=== PATIENT | male | born 1935 | race Caucasian/White ===

== ENCOUNTER 2017-02-16 16:01 | Emergency (ER) | payer MEDICARE ==
[~2017-02-16] VITALS: Ht 177.8 cm; Wt 118.2 kg
[~2017-02-16 16:01] MED LIST: ACCUKIT10 XX; ACURKIT XX; ADVO1MIS3 XX; ALCOPAD11 XX; AMLO10TA2 PO; AMLO5TAB2 PO; ASPI325T24 PO; CARV12.5 PO; CARV6.25 PO; CRES10TA32 PO; FURO20TA2 PO; FURO40TA2 PO; GABA-279 PO; INSUDET SC; INSUH10VL SC; K-TA1TAB PO; LASI80TA PO; LOSA100T36 PO; LOSA100T8 PO; NITR4TASL SL; NORV5TAB PO; ONETKIT IM; ONETKIT XX; TOUJ1.2I SC; TRUL10IN SC; VITACAP9 PO
[2017-02-16 16:19] VITALS: BP 184/83
[2017-02-16 16:54] LABS: BASO % 0.3 % (0.0-1.0); EOS # 0.2 K/mm3 (0.0-0.50); EOS % 2.3 % (0.0-3.0); LARGE UNSTAINED CELL # 0.1 K/mm3 (0.0-0.4); LARGE UNSTAINED CELL % 1.2 % (0.0-4.0); LYMPH # 1.5 K/mm3 (1.5-4.5); LYMPH % 15.1 % (24.0-44.0); MEAN CORPUSCULAR HEMOGLOBIN 31.2 pg (27.0-33.0); MEAN CORPUSCULAR HGB CONC 33.8 g/dl (32.0-36.5); MEAN CORPUSCULAR VOLUME 92.2 fl (80.0-96.0); MONO # 0.4 K/mm3 (0.0-0.8); MONO % 3.8 % (0.0-5.0); NEUTROPHILS # 7.1 K/mm3 (1.8-7.7); NEUTROPHILS % 77.3 % (36.0-66.0); PLATELET COUNT, AUTOMATED 168 k/mm3 (150-450); RED CELL DISTRIBUTION WIDTH 14.1 % (11.5-14.5); WHITE BLOOD COUNT 9.1 K/mm3 (4.0-10.0)
[2017-02-16 17:23] LABS: CALCIUM LEVEL 8.2 MG/DL (8.8-10.2); CREATININE FOR GFR 1.51 MG/DL (0.70-1.30); GLOMERULAR FILTRATION RATE 47.2 (>35)
== END 2017-02-16 19:27 | disposition home or self-care (01) ==
LOC: M ED 16:01 → EDBD 16:01 → EDSEX 16:01 → M ED 19:27
DX: N18.3 Chronic kidney disease, stage 3 (moderate) (principal); M48.06 Spinal stenosis, lumbar region; W01.0XXA Fall on same level from slipping, tripping and stumbling without subsequent striking against object, initial encounter; E11.22 Type 2 diabetes mellitus with diabetic chronic kidney disease; I12.9 Hypertensive chronic kidney disease with stage 1 through stage 4 chronic kidney disease, or unspecified chronic kidney disease; E66.9 Obesity, unspecified; Z95.2 Presence of prosthetic heart valve; Z79.4 Long term (current) use of insulin; Z79.82 Long term (current) use of aspirin; Z79.899 Other long term (current) drug therapy; Z88.8 Allergy status to other drugs, medicaments and biological substances

== ENCOUNTER 2017-02-27 21:03 | Inpatient (IN) | payer MEDICARE ==
[~2017-02-27] VITALS: Ht 177.8 cm; Wt 117.0 kg
[2017-02-27] MEDS ORDERED: NEUR100C PO ×2 (21:35)
[2017-02-27] MEDS ORDERED: INSUDET SC (21:35)
[2017-02-27] MEDS ORDERED: INSUH10VL SC (21:35)
[2017-02-27] MEDS ORDERED: NS 500 ML IV ONE (22:15)
[2017-02-27 22:24] LABS: VENOUS BASE EXCESS 1.5 (-2.0-2.0); VENOUS O2 SATURATION 72.2 % (60.0-80.0); VENOUS PARTIAL PRESSURE CO2 53.6 mmHg (38.0-50.0); VENOUS PARTIAL PRESSURE O2 39.7 mmHg (30.0-50.0); VENOUS STANDARD HCO3 25.2 MEQ/L; VENOUS TOTAL CO2 29.8 MEQ/L (24.0-28.0)
[2017-02-27 22:31] LABS: BASO # 0.1 K/mm3 (0.0-0.2); BASO % 1.1 % (0.0-1.0); EOS # 0.1 K/mm3 (0.0-0.50); EOS % 1.5 % (0.0-3.0); LARGE UNSTAINED CELL # 0.1 K/mm3 (0.0-0.4); LARGE UNSTAINED CELL % 1.5 % (0.0-4.0); LYMPH # 1.9 K/mm3 (1.5-4.5); LYMPH % 20.5 % (24.0-44.0); MEAN CORPUSCULAR HEMOGLOBIN 31.1 pg (27.0-33.0); MEAN CORPUSCULAR HGB CONC 34.2 g/dl (32.0-36.5); MEAN CORPUSCULAR VOLUME 90.9 fl (80.0-96.0); MONO # 0.4 K/mm3 (0.0-0.8); MONO % 4.7 % (0.0-5.0); NEUTROPHILS # 6.4 K/mm3 (1.8-7.7); NEUTROPHILS % 70.7 % (36.0-66.0); PLATELET COUNT, AUTOMATED 210 k/mm3 (150-450); RED CELL DISTRIBUTION WIDTH 13.8 % (11.5-14.5)
[2017-02-27 22:37] LABS: ALBUMIN 2.7 GM/DL (3.2-5.2); ALBUMIN/GLOBULIN RATIO 0.75 (1.00-1.93); BILIRUBIN,DIRECT 0.1 MG/DL (0.0-0.2); BILIRUBIN,TOTAL 0.4 MG/DL (0.2-1.0); CALCIUM LEVEL 8.4 MG/DL (8.8-10.2); CREATININE FOR GFR 2.24 MG/DL (0.70-1.30); TOTAL PROTEIN 6.3 GM/DL (6.4-8.2)
[2017-02-28] VITALS (8 sets, daily range): BP systolic 126–192; BP diastolic 62–81
[2017-02-28] MEDS ORDERED: ONDANSETRON 4MG/2ML VIAL (J2405) IV PRN (01:00)
[2017-02-28] MEDS ORDERED: ACETAMINOPHEN TAB 650MG DOSE (2X325MG) PO PRN (01:00)
[2017-02-28] MEDS ORDERED: DEXTROSE 50% 50 ML SYRINGE IV PRN (01:15)
[2017-02-28] MEDS ORDERED: GLUCAGON FOR INJ 1 MG VIAL (J1610) SC PRN (01:15)
[2017-02-28] MEDS ORDERED: GLUCOSE 4 GM CHEW TABLET PO PRN (01:15)
[2017-02-28] MEDS ORDERED: TRUL0.5I SC (01:58)
[2017-02-28] MEDS ORDERED: FURO40TA2 PO (01:58)
[2017-02-28] MEDS ORDERED: LOSA100T36 PO (01:58)
[2017-02-28] MEDS ORDERED: CARV25TA PO (01:58)
[2017-02-28] MEDS ORDERED: LACT10SO29 PO (01:58)
--- NOTE | 2017-02-28 02:10 | REPUSA ---
CLINICAL HISTORY: Edema. COMMENTS: Real time sonography with duplex doppler of the extremities bilaterally was performed with attention to the major deep venous structures. Evaluation reveals the common femoral, superficial femoral and popliteal veins bilaterally to be comp letely compressible without intraluminal thrombus. There is normal spontaneous phasic flow and augmen tation in all deep veins. The greater saphenous/common femoral vein junctions are patent bilaterally. IMPRESSION: No evidence of DVT in the lower extremities bilaterally. Thank you for your kind referral of this patient.
[2017-02-28] MEDS: PERCOCET 5MG/325MG TAB PO PRN (02:22)
--- NOTE | 2017-02-28 03:00 | HPE ---
DATE OF ADMISSION: 02/28/2017 PRIMARY CARE PROVIDER: Dr. Cifuentes covered by Anastacio Morrison. CHIEF COMPLAINT: Lightheaded, almost passing out, low energy level. HISTORY OF PRESENT ILLNESS: This is an 81-year-old male patient with underlying medical history of poorly controlled diabetes, dyslipidemia, hypertension, coronary arterial disease with coronary artery bypass graft (CABG), chronic kidney disease (CKD) stage IV, congestive heart failure (CHF), sees Dr. Ho from nephrology, poor compliance, currently patient is not really following up appropriately. Presented earlier today during dinnertime, patient felt lightheaded with no strength, with almost passing out. Emergency medical services (EMS) was called, found the patient to be hypoglycemic down to the 70s and also blood pressure in the 80s, which improved with intravenous (IV) fluids. Earlier today around 3 p.m., patient was informed that his blood glucose is 540. Subsequently, received 10 of NovoLog with fingerstick progressively lower numbers. Patient has history of erratic glucose, sometimes with hypoglycemia. As per family, patient is not really compliant with his medication. Patient reported mild cough, not much out of ordinary. Denies any chest pain, pressure, discomfort. Denies palpitations, urinary complaint, abdominal pain, diarrhea, constipation, vision change, hearing change, headaches. Feels comfortable in the emergency department (ED). Does report intermittent left foot cramping that has been chronic with bilateral lower extremity edema and blisters with venous stasis skin changes and also obesity. ALLERGIES: To RAMIPRIL and SPIRONOLACTONE. PAST MEDICAL HISTORY: 1. Diabetes. 2. Obesity. 3. Dyslipidemia. 4. Coronary arterial disease. 5. Hypertension. 6. CKD stage IV. 7. Questionable CHF. PAST SURGICAL HISTORY: 1. CABG 10 years ago. 2. Appendectomy. 3. Left knee surgery secondary to fall. 4. Tonsillectomy. SOCIAL HISTORY: Patient quit smoking at age 53. Started smoking since he was 15 years old, one pack per day. Drinking one can of beer one time a month. Denies any other illicit drug use. Patient lives alone. Family have serious concern of the patient's ability to care for him and also take his medication. FAMILY HISTORY: Both parents with diabetes type 2. REVIEW OF SYSTEMS: Reported lightheadedness and fatigue earlier today, poorly controlled blood glucose, intermittent left leg cramp and also cough. All other review of systems is negative. PHYSICAL EXAMINATION: VITAL SIGNS: Patient with blood pressure in 80s on admission, temperature 97, pulse 62, respirations 20, blood pressure 118/56, pulse oximetry 97% on room air. GENERAL: Patient morbidly obese, alert and oriented times three in no acute distress, poor historian. HEENT: Normocephalic, atraumatic. PULMONARY: Diminished breath sounds bilaterally. CARDIAC: Regular S1, S2. Distant heart sounds. ABDOMEN: Soft, nontender. Positive bowel sounds. Obese. EXTREMITIES: 2+ bilateral lower extremity edema up to the thigh with blisters and venous stasis skin changes. Does not appear to be erythematous. EKG sinus rhythm, first-degree heart block with T-wave inversion V3-V6. No significant change compared to previous. LABORATORY: WBC 9, hemoglobin and hematocrit 11.9/34.8, platelets 210. Chemistry: Sodium 139, potassium 4, chloride 104, bicarbonate 27, BUN 30, creatinine 2.24, lactic acid 3.3. Troponin 0.99 and repeat 0.88. HOME MEDICATIONS: - Norvasc 5 mg by mouth daily - aspirin 325 mg by mouth daily - Coreg 25 mg by mouth twice a day - Lasix 80 mg by mouth daily - Neurontin 100 mg by mouth in the morning and 200 mg by mouth nightly - NovoLog insulin 40 units premeal - Levemir 70 units subcutaneously daily - lactulose - losartan 100 mg by mouth daily - nitroglycerin 0.4 mg sublingually as needed - Crestor 10 mg by mouth daily - Trulicity 1.5 mg subcutaneously as directed ASSESSMENT AND PLAN: This is an 81-year-old male patient with underlying medical history of morbid obesity, hypertension, dyslipidemia, coronary arterial disease with coronary artery bypass graft (CABG), chronic kidney disease (CKD) stage IV, diabetes, congestive heart failure (CHF), presented with near syncopal episode with hypoglycemia and hypotension. 1. Near syncope episode with hypoglycemia and hypotension. Followup orthostatics. Intravenous (IV) fluids have been given in the emergency room. Holding blood pressure medications. Strict intake and output (I and O). Follow fingersticks every 2 hours for the next 24 hours. Insulin dose has been adjusted. Echocardiogram. Currently back to baseline. Physical therapy. Patient experienced no loss of consciousness and no injuries. Followup cardiac enzymes. Telemetry. 2. Lactic acidosis. Possibly secondary to hypoglycemia versus hypotension. IV fluids have been given. Holding blood pressure medications. Repeat lactic acid. 3. Troponin elevation in the setting of CKD. Continue to monitor. Telemetry. Patient has no chest pain. 4. Dyslipidemia. Continue statin. 5. Diabetes. Patient with hypoglycemia. Basal bolus insulin. Levemir has been decreased to 50 and mealtime protocol. Followup fingersticks every 2 hours for the next 24 hours. Followup A1c. Patient poorly compliant. 6. Hypertension. Withholding blood pressure medications for now. Restart as needed. 7. Bilateral lower extremity swelling. Doppler has been ordered. Beta-natruretic peptide (BNP) appreciated. Will get echocardiogram, telemetry. Restart Lasix once blood pressure is stable. 8. CHF. Withholding diuretic given patient was hypotensive. Will restart Lasix once blood pressure improves. Strict I and O, daily weight. 9. Morbid obesity. Questionable obstructive sleep apnea (RIKKI). Complicating care. RIKKI protocol. 10. Coronary arterial disease. Continue aspirin, statin, beta liang with holding parameters. Restart other blood pressure medications once patient's blood pressure improves. 11. CKD stage IV. BUN and creatinine at baseline. Continue to monitor. Followup electrolytes. 12. Chronic pain, diabetic neuropathy. Continue current medication. 13. Deep venous thrombosis (DVT) prophylaxis. Heparin subcutaneously. DISPOSITION PLANNING: Pending clinical improvement, physical therapy, patient and family services (PFS) for services versus placement. Family has reported that patient has been noncompliant with medication. Restart Lasix and blood pressure medications once blood pressure is stabilized during the day today.
[2017-02-28] MEDS: HEPARIN SOD (PORCINE) 5000 UNITS/ML VIAL SC SCH ×3 (05:34→21:11)
[2017-02-28] MEDS ORDERED: amLODIPine 5 MG TAB PO ONE ×2 (06:00→10:00)
[2017-02-28 07:56] LABS: MEAN CORPUSCULAR HEMOGLOBIN 30.9 pg (27.0-33.0); MEAN CORPUSCULAR HGB CONC 33.9 g/dl (32.0-36.5); MEAN CORPUSCULAR VOLUME 91.3 fl (80.0-96.0); RED CELL DISTRIBUTION WIDTH 14.1 % (11.5-14.5); WHITE BLOOD COUNT 10.4 K/mm3 (4.0-10.0)
[2017-02-28] MEDS: HumaLOG INSULIN (NovoLOG) PER UNIT SC SCH ×4 (08:05→20:37)
[2017-02-28] MEDS: SENOKOT S TAB PO SCH ×2 (08:06→20:36)
[2017-02-28] MEDS: LEVEMIR (INSULIN DETEMIR) 1 UNITS/0.01ML SC SCH (08:06)
[2017-02-28] MEDS: CARVedilol 12.5 MG TAB PO SCH ×2 (08:06→20:36)
[2017-02-28] MEDS: LOSARTAN 50 MG TAB PO SCH (08:06)
[2017-02-28] MEDS: LACTULOSE 20 GM/30 ML SYRUP UD PO SCH ×2 (08:06→20:36)
[2017-02-28] MEDS: GABAPENTIN 100 MG CAP PO SCH ×2 (08:07→20:36)
[2017-02-28 08:20] LABS: ALBUMIN 2.6 GM/DL (3.2-5.2); ALBUMIN/GLOBULIN RATIO 0.72 (1.00-1.93); BILIRUBIN,TOTAL 0.5 MG/DL (0.2-1.0); CALCIUM LEVEL 8.2 MG/DL (8.8-10.2); CREATININE FOR GFR 1.9 MG/DL (0.70-1.30); GLOMERULAR FILTRATION RATE 36.2 (>35); MAGNESIUM LEVEL 1.9 MG/DL (1.8-2.4); POTASSIUM SERUM 4.1 MEQ/L (3.5-5.1); THYROXINE (T4) 7.9 UG/DL (4.5-12.0); TOTAL PROTEIN 6.2 GM/DL (6.4-8.2)
[2017-02-28] MEDS: ROSUVASTATIN 10 MG TAB (CRESTOR) PO SCH (08:51)
[2017-02-28] MEDS: FUROSEMIDE 80 MG TAB PO SCH (08:51)
[2017-02-28] MEDS: ASPIRIN ENTERIC 325 MG TAB PO SCH (08:52)
--- NOTE | 2017-02-28 11:47 | ECHO ---
DATE OF PROCEDURE: 02/28/2017 DATE OF : 1935 AGE: 81 REFERRING PROVIDER: Dr. Upton. PATIENT LOCATION: Emergency room. REASON FOR ECHOCARDIOGRAM: Syncope. 2D MEASUREMENTS: IVS: 1.4 cm LV: 4.8 cm LVPW: 1.2 cm LA: 4.6 cm Aorta: 3.6 cm IVC: 2.2 cm DOPPLER MEASUREMENTS: Peak velocity across the aortic valve: 1.2 m/s Mitral E: 1.1 Mitral A: 1.2 Ratio 0.85 Maximum tricuspid valve velocity: 2.7 m/s 2D COMMENTS: 1. Mildly increased left ventricular wall thickness with normal left ventricular size and low normal global left ventricular systolic function. The estimated left ventricular systolic ejection fraction is 55%. 2. Mildly enlarged left atrium. The right atrium also appeared to be minimally enlarged. Normal right ventricle. 3. The atrial septum appeared to be normal without evidence of defect or shunt. 4. Normal aortic root. 5. Trace pericardial effusion noted, no evidence of cardiac tamponade. 6. Mildly calcified aortic valve with normal leaflet excursion. Mildly calcified mitral annulus with normal anterior mitral valve leaflet motion. Normal tricuspid valve and pulmonic valve. The proximal pulmonary artery branches also appeared to be normal. 7. The inferior vena cava was mildly enlarged, central venous pressure might be elevated. DOPPLER: It detects mild aortic regurgitation, mild to moderate mitral regurgitation, and mild to moderate tricuspid regurgitation. The calculated pulmonary artery systolic pressure varies between 30 to 40 mmHg. Abnormal relaxation pattern was noted across the mitral valve leaflets as well as the mitral valve annulus consistent with a delayed relaxation. IMPRESSION: 1. Low normal global left ventricular systolic function. Not mentioned above, the basal portion of the inferior wall appeared to be hypokinetic. 2. Grade 1 left ventricular diastolic dysfunction. 3. Aortic valve sclerosis with mild aortic regurgitation. 4. Mitral annulus calcification with mildly enlarged left atrium and mild to moderate mitral regurgitation. 5. Mild to moderate tricuspid regurgitation with mild pulmonary hypertension. 6. Trace pericardial effusion noted posteriorly. 7. This echocardiogram was compared with last study on 02/19/2006, the regional wall motion abnormality involving the posterior wall of the left ventricle might be new. MTDD
--- NOTE | 2017-02-28 14:14 | IPNPDOC ---
Text Note Date of Service The patient was seen on 02/28/17. NOTE Subjective: Patient is an 81 year old male with a PMHx of DM2, HTN, DLP, CAD, CKD4 , Obesity, Venous stasis and Diastolic CHF who presented to the ER after he was found to be hypoglycemic and hypotensive by EMS. Patient was at home an ntoed that his sugars were elevated yesterday at 540, he received 10 units of Novolog and had taken some medications inappropriately at home. After this point he began to have symptoms and EMS was notified. Patient was seen and examined at the bedside currently. He denies any problems at this time. Objective: Vitals (See below) General: Lying in bed, no acute distress, comfortable, AAOx3 HEENT: NC, AT CVS: +S1S2 Lungs: Fair air entry b/l, -w/r/r Abdomen: Soft, ND, NT, +BSx4 Extremities: LE venous stasis ulcers with blisters bilaterally, - Calf tenderness Assessment and plan: 1. Near syncope - likely 2/2 hypotension and hypoglycemia - likely 2/2 medication misuse - Presented with hypoglycemia and hypotension - Currently his blood glucose is elevated and blood pressure is elevated - Physical unrevealing - Orthostatic vital signs still positive - c/w Orthostatic vital sign check 2. DM2 - s/p Hypoglycemia - A1c of 8.4% - Will restart Levemir at reduced dose and titrate upward for better control - c/w Levemir at 50 SQ daily - c/w ISS 3. Hypertension - s/p Hypotension - Restarted home medications (Losartan 100, Carvedilol 25 BID, Amlodipine) - Increased amlodipine to 10 mg daily 4. Elevated troponin - likely 2/2 hypotension and CK4 - Troponin have remained around similar range - will continue to trend 5. s/p Lactic acidosis 6. Acute kidney injury on CKD4 - Cr baseline of 1.5-1.7 - Cr currently at 1.9; down from admission of 2.24 - Avoid nephrotoxic medications 7. DLP - c/w rosuvastatin 8. Bilateral LE swelling with chronic venous stasis changes - Physical notes that there is mild pitting edema, blisters are noted - BNP of 690 - Duplex US negative for DVT - ECHO 02/28: EF of 55%, Grade 1 Diastolic dysfunction, mild-moderate TR, mild pulmonary HTN, trace pericardial effusion 9. Diastolic CHF - appears compensated - mild edema of b/l lower extremities - c/w Lasix (home dose of 80 daily) 10. Morbid obesity 11. RIKKI - no CPAP machine - c/w RIKKI protocol 12. CAD - c/w ASA, Rosuvastatin and Carvedilol 13. Chronic pain / Diabetic neuropathy - c/w Gabapentin and Oxycodone 14. DVT prophylaxis - c/w Heparin SQ VS,Fishbone, I+O VS, Fishbone, I+O Laboratory Tests 02/27/17 21:52 Red Blood Count 3.83 L, Mean Corpuscular Volume 90.9, Mean Corpuscular Hemoglobin 31.1, Mean Corpuscular Hemoglobin Concent 34.2, Red Cell Distribution Width 13.8, Neutrophils (%) (Auto) 70.7 H, Lymphocytes (%) (Auto) 20.5 L, Monocytes (%) (Auto) 4.7, Eosinophils (%) (Auto) 1.5, Basophils (%) ( Auto) 1.1 H, Neutrophils # (Auto) 6.4, Lymphocytes # (Auto) 1.9, Monocytes # ( Auto) 0.4, Eosinophils # (Auto) 0.1, Basophils # (Auto) 0.1 02/28/17 07:34 Red Blood Count 3.71 L, Mean Corpuscular Volume 91.3, Mean Corpuscular Hemoglobin 30.9, Mean Corpuscular Hemoglobin Concent 33.9, Red Cell Distribution Width 14.1, Calcium Level 8.2 L, Aspartate Amino Transf (AST/SGOT) 10 L, Alanine Aminotransferase (ALT/SGPT) 15, Total Creatine Kinase 157, Alkaline Phosphatase 94, Total Bilirubin 0.5, Total Protein 6.2 L, Albumin 2.6 L Vital Signs Date Time Temp Pulse Resp B/P (MAP) Pulse Ox O2 Delivery O2 Flow Rate FiO2 02/28/17 12:00 97.7 59 20 153/67 (95) 96 Room Air MARIA ELENA SLOAN MD Feb 28, 2017 14:14
--- NOTE | 2017-02-28 14:47 | REP ---
CHEST, TWO VIEWS: COMPARISON: 07/21/2016. Two views of the chest are performed. Bilateral fibrotic changes are again seen, most prominent in the left lung base. There is chronic blunting of the left costophrenic angle. Somewhat increased density on the lateral view posteriorly and inferiorly suggests possible left basilar atelectasis/infiltrate. Heart is upper limits of normal in size. Multiple sternal wires and mediastinal clips are present. There is calcification of the thoracic aorta. There are mild degenerative changes of the spine. IMPRESSION: Chronic findings particularly in the left lower lobe. Underlying superimposed atelectasis or infiltrate left lower lobe not excluded. Signed by Cooper Hyde MD 02/28/2017 03:23 P
--- NOTE | 2017-02-28 20:03 | ECGEPIP ---
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
--- NOTE | 2017-02-28 20:05 | ECGEPIP ---
Stationary ECG Study [facility] - ED Test Date: 2017-02-28 Pat Name: CARLOS BANGURA Department: Room: [place] [address] Gender: M [employer]: johnathon : 1935 Requested By: ANGELICA Mcclain Order Number: [id number] Reading MD: Melina Beavers Measurements Intervals [place] Rate: 62 P: -28 AL: 194 QRS: -32 QRSD: 102 T: 144 QT: 438 QTc: 448 Interpretive Statements SINUS RHYTHM MARKED LEFT AXIS DEVIATION PATTERN CONSISTENT WITH PULMONARY DISEASE MODERATE T-WAVE ABNORMALITY, CONSIDER LATERAL ISCHEMIA SIMILAR 22:07 Electronically Signed On 02-28-2017 20:05:18 EDT by Melina Beavers
[2017-03-01 00:17] VITALS: BP 153/67
[2017-03-01 04:25] VITALS: BP 140/65
[2017-03-01] MEDS: HEPARIN SOD (PORCINE) 5000 UNITS/ML VIAL SC SCH ×3 (06:24→21:57)
[2017-03-01 06:33] LABS: MEAN CORPUSCULAR HEMOGLOBIN 32.6 pg (27.0-33.0); MEAN CORPUSCULAR HGB CONC 35.4 g/dl (32.0-36.5); RED CELL DISTRIBUTION WIDTH 14.1 % (11.5-14.5); WHITE BLOOD COUNT 8.2 K/mm3 (4.0-10.0)
[2017-03-01 06:57] LABS: ALBUMIN 2.3 GM/DL (3.2-5.2); ALBUMIN/GLOBULIN RATIO 0.72 (1.00-1.93); BILIRUBIN,TOTAL 0.3 MG/DL (0.2-1.0); CALCIUM LEVEL 7.9 MG/DL (8.8-10.2); CREATININE FOR GFR 1.98 MG/DL (0.70-1.30); GLOMERULAR FILTRATION RATE 34.5 (>35); MAGNESIUM LEVEL 1.9 MG/DL (1.8-2.4); POTASSIUM SERUM 4.4 MEQ/L (3.5-5.1); TOTAL PROTEIN 5.5 GM/DL (6.4-8.2)
[2017-03-01 08:00] VITALS: BP 160/70
[2017-03-01] MEDS ORDERED: amLODIPine 5 MG TAB PO SCH (09:00)
[2017-03-01] MEDS ORDERED: amLODIPine 10 MG TAB PO SCH (09:00)
[2017-03-01] MEDS: LEVEMIR (INSULIN DETEMIR) 1 UNITS/0.01ML SC SCH ×2 (09:11→21:56)
[2017-03-01] MEDS: SENOKOT S TAB PO SCH ×2 (09:12→21:57)
[2017-03-01] MEDS: HumaLOG INSULIN (NovoLOG) PER UNIT SC SCH ×4 (09:12→22:02)
[2017-03-01] MEDS: GABAPENTIN 100 MG CAP PO SCH ×2 (09:12→21:57)
[2017-03-01] MEDS: LACTULOSE 20 GM/30 ML SYRUP UD PO SCH ×2 (09:13→21:59)
[2017-03-01] MEDS: FUROSEMIDE 80 MG TAB PO SCH (09:13)
[2017-03-01] MEDS: LOSARTAN 50 MG TAB PO SCH (09:13)
[2017-03-01] MEDS: ROSUVASTATIN 10 MG TAB (CRESTOR) PO SCH (09:13)
[2017-03-01] MEDS: ASPIRIN ENTERIC 325 MG TAB PO SCH (09:13)
[2017-03-01] MEDS: CARVedilol 12.5 MG TAB PO SCH ×2 (09:13→21:57)
[2017-03-01] MEDS ORDERED: SLF 3 ML SYR IV PRN (10:45)
--- NOTE | 2017-03-01 10:56 | IPNPDOC ---
Text Note Date of Service The patient was seen on 03/01/17. NOTE Subjective: Patient is an 81 year old male with a PMHx of DM2, HTN, DLP, CAD, CKD4 , Obesity, Venous stasis and Diastolic CHF who presented to the ER after he was found to be hypoglycemic and hypotensive by EMS. Patient was at home an noted that his sugars were elevated yesterday at 540, he received 10 units of Novolog and had taken some medications inappropriately at home. After this point he began to have symptoms and EMS was notified. Patient was seen and examined at the bedside currently. He denies any problems at this time. Objective: Vitals (See below) General: Lying in bed, no acute distress, comfortable, AAOx3 HEENT: NC, AT CVS: +S1S2 Lungs: Fair air entry b/l, -w/r/r Abdomen: Soft, ND, NT, +BSx4 Extremities: LE venous stasis ulcers with blisters bilaterally, - Calf tenderness Assessment and plan: 1. s/p Pre-syncope - likely 2/2 hypotension and hypoglycemia - likely 2/2 medication misuse - Presented with hypoglycemia and hypotension - Currently his blood glucose is elevated and blood pressure is elevated - Physical unrevealing - Orthostatic vital signs still positive - c/w Orthostatic vital sign check 2. DM2 - s/p Hypoglycemia - A1c of 8.4% - c/w Levemir at 50 QD; will add Levemir 20 QHS - c/w ISS 3. Hypertension - s/p Hypotension - c/w Losartan 100, Carvedilol 25 BID, Amlodipine 10 4. Elevated troponin - likely 2/2 hypotension and CK4 - Troponin have remained around similar range - Will follow repeat troponin this morning - will continue to trend 5. s/p Lactic acidosis 6. Acute kidney injury on CKD4 - Cr baseline of 1.5-1.7 - Cr currently at 1.98; down from admission of 2.24 - Avoid nephrotoxic medications - Will start NS at 80 cc/hr for 500cc 7. DLP - c/w rosuvastatin 8. Bilateral LE swelling with chronic venous stasis changes - Physical notes that there is mild pitting edema, blisters are noted - Duplex US negative for DVT 9. Diastolic CHF - appears compensated - mild edema of b/l lower extremities - BNP of 690 - ECHO 02/28: EF of 55%, Grade 1 Diastolic dysfunction, mild-moderate TR, mild pulmonary HTN, trace pericardial effusion - c/w Lasix (home dose of 80 daily) 10. Morbid obesity 11. RIKKI - no CPAP machine - c/w RIKKI protocol 12. CAD - c/w ASA, Rosuvastatin and Carvedilol 13. Chronic pain / Diabetic neuropathy - c/w Gabapentin and Oxycodone 14. DVT prophylaxis - c/w Heparin SQ Disposition: - Discussed with son; has arranged for caregiver at home for 7 days a week - Will wait for sugars to be well controlled - Will await PT clearance VS,Fishbone, I+O VS, Fishbone, I+O Laboratory Tests 03/01/17 06:24 Red Blood Count 3.50 L, Mean Corpuscular Volume 92.0, Mean Corpuscular Hemoglobin 32.6, Mean Corpuscular Hemoglobin Concent 35.4, Red Cell Distribution Width 14.1, Calcium Level 7.9 L, Aspartate Amino Transf (AST/SGOT) 8 L, Alanine Aminotransferase (ALT/SGPT) 12, Alkaline Phosphatase 81, Total Bilirubin 0.3, Total Protein 5.5 L, Albumin 2.3 L Vital Signs Date Time Temp Pulse Resp B/P (MAP) Pulse Ox O2 Delivery O2 Flow Rate FiO2 03/01/17 09:13 160/70 03/01/17 09:13 64 03/01/17 08:00 97.4 18 100 Room Air 03/01/17 07:43 1.0 I&O- Last 24 Hours up to 6 AM 03/01/17 05:59 Intake Total 360 ml Output Total 950 ml Balance -590 ml MARIA ELENA SLOAN MD Mar 01, 2017 10:56
[2017-03-01] MEDS ORDERED: NS 500 ML IV SCH (11:00)
[2017-03-01 12:00] VITALS: BP 109/53
[2017-03-01] MEDS: SLF 3 ML SYR IV SCH ×2 (14:46→22:02)
[2017-03-01 16:00] VITALS: BP 150/67
[2017-03-01 21:00] VITALS: BP 167/69
[2017-03-02 06:00] VITALS: BP 158/65
[2017-03-02] MEDS: HEPARIN SOD (PORCINE) 5000 UNITS/ML VIAL SC SCH ×3 (06:28→20:34)
[2017-03-02] MEDS: SLF 3 ML SYR IV SCH ×3 (06:28→20:37)
[2017-03-02 07:01] LABS: ALBUMIN 2.2 GM/DL (3.2-5.2); ALBUMIN/GLOBULIN RATIO 0.58 (1.00-1.93); BILIRUBIN,TOTAL 0.3 MG/DL (0.2-1.0); CALCIUM LEVEL 8.1 MG/DL (8.8-10.2); CREATININE FOR GFR 2.03 MG/DL (0.70-1.30); GLOMERULAR FILTRATION RATE 33.6 (>35); POTASSIUM SERUM 4.2 MEQ/L (3.5-5.1)
[2017-03-02 07:11] LABS: MEAN CORPUSCULAR HEMOGLOBIN 32.7 pg (27.0-33.0); MEAN CORPUSCULAR HGB CONC 35.6 g/dl (32.0-36.5); MEAN CORPUSCULAR VOLUME 91.8 fl (80.0-96.0); RED CELL DISTRIBUTION WIDTH 14.1 % (11.5-14.5); WHITE BLOOD COUNT 8.7 K/mm3 (4.0-10.0)
[2017-03-02] MEDS: HumaLOG INSULIN (NovoLOG) PER UNIT SC SCH ×4 (08:54→21:00)
[2017-03-02] MEDS: LEVEMIR (INSULIN DETEMIR) 1 UNITS/0.01ML SC SCH ×2 (08:55→20:35)
[2017-03-02] MEDS: LOSARTAN 50 MG TAB PO SCH (08:56)
[2017-03-02] MEDS: CARVedilol 12.5 MG TAB PO SCH ×2 (08:56→20:36)
[2017-03-02] MEDS: GABAPENTIN 100 MG CAP PO SCH ×2 (08:56→20:35)
[2017-03-02] MEDS: FUROSEMIDE 80 MG TAB PO SCH (08:56)
[2017-03-02] MEDS: ROSUVASTATIN 10 MG TAB (CRESTOR) PO SCH (08:57)
[2017-03-02] MEDS: ASPIRIN ENTERIC 325 MG TAB PO SCH (08:58)
[2017-03-02] MEDS: LACTULOSE 20 GM/30 ML SYRUP UD PO SCH ×2 (08:58→20:40)
[2017-03-02] MEDS: SENOKOT S TAB PO SCH ×2 (08:58→20:36)
[2017-03-02] MEDS: PERCOCET 5MG/325MG TAB PO PRN ×3 (09:00→20:36)
[2017-03-02 14:00] VITALS: BP 149/64
--- NOTE | 2017-03-02 15:23 | IPNPDOC ---
Date Seen The patient was seen on 03/02/17. Progress Note Patient is an 81 year old male with a PMHx of DM2, HTN, DLP, CAD, CKD4 , Obesity, Venous stasis and Diastolic CHF who presented to the ER after he was found to be hypoglycemic and hypotensive by EMS. Patient was at home an noted that his sugars were elevated yesterday at 540, he received 10 units of Novolog and had taken some medications inappropriately at home. After this point he began to have symptoms and EMS was notified. Patient was seen and examined at the bedside currently. He complains of blisters on both his legs and increased leg swelling. Objective: Vitals (See below) General: Lying in bed, no acute distress, comfortable, AAOx3 HEENT: NC, AT CVS: +S1S2 Lungs: Fair air entry b/l, -w/r/r Abdomen: Soft, ND, NT, +BSx4 Extremities: LE venous stasis ulcers with blisters bilaterally, - Calf tenderness Assessment and plan: 1. s/p Pre-syncope - likely 2/2 hypotension and hypoglycemia - likely 2/2 medication misuse - Presented with hypoglycemia and hypotension - Currently his blood glucose is elevated and blood pressure is elevated - Physical unrevealing - Orthostatic vital signs still positive - possibly age related and due to autonomic neuropathy. 2. DM2 - s/p Hypoglycemia - A1c of 8.4% - c/w Levemir at 50 QD; and Levemir 20 QHS - c/w ISS 3. Hypertension - s/p Hypotension - c/w Losartan 100, Carvedilol 25 BID, Amlodipine 10 4. Elevated troponin - likely 2/2 hypotension and CK4 - Troponin have remained around similar range 5. s/p Lactic acidosis 6. Acute kidney injury on CKD4 - Cr baseline of 1.5-1.7 - Cr currently at 2.1 - Avoid nephrotoxic medications 7. DLP - c/w rosuvastatin 8. Bilateral LE swelling with chronic venous stasis changes - Physical notes that there is mild pitting edema, blisters are noted - Duplex US negative for DVT - continue with lasix 9. Diastolic CHF - appears compensated - mild edema of b/l lower extremities - BNP of 690 - ECHO 02/28: EF of 55%, Grade 1 Diastolic dysfunction, mild-moderate TR, mild pulmonary HTN, trace pericardial effusion - c/w Lasix (home dose of 80 daily) 10. Morbid obesity 11. RIKKI - no CPAP machine - c/w RIKKI protocol 12. CAD - c/w ASA, Rosuvastatin and Carvedilol 13. Chronic pain / Diabetic neuropathy - c/w Gabapentin and Oxycodone 14. DVT prophylaxis - c/w Heparin SQ Disposition: - Discussed with son; has arranged for caregiver at home for 7 days a week - Will wait for sugars to be well controlled - Will await PT clearance VS, I&O, 24H, Fishbone Vital Signs/I&O Vital Signs Date Time Temp Pulse Resp B/P (MAP) Pulse Ox O2 Delivery O2 Flow Rate FiO2 03/02/17 09:30 18 03/02/17 08:56 158/65 03/02/17 08:56 60 03/02/17 06:00 97.5 97 Room Air 03/01/17 07:43 1.0 I&O- Last 24 Hours up to 6 AM 03/02/17 05:59 Intake Total 2480 ml Output Total 0 ml Balance 2480 ml Laboratory Data 24H LABS Laboratory Tests 2 03/01/17 16:47: Bedside Glucose (Misc Panel) 364H 03/01/17 21:53: Bedside Glucose (Misc Panel) 227H 03/02/17 06:20: Anion Gap 6L, Glomerular Filtration Rate 33.6L, Blood Urea Nitrogen 42H, Creatinine 2.03H, Sodium Level 141, Potassium Level 4.2, Chloride Level 106, Carbon Dioxide Level 29, Calcium Level 8.1L, Aspartate Amino Transf (AST/SGOT) 7L, Alanine Aminotransferase (ALT/SGPT) 17, Alkaline Phosphatase 80, Total Bilirubin 0.3, Total Protein 6.0L, Albumin 2.2L, Magnesium Level 2.0, C- Reactive Protein, Quantitative 1.06H, Albumin/Globulin Ratio 0.58L 03/02/17 12:16: Bedside Glucose (Misc Panel) 263H CBC/BMP Laboratory Tests 03/02/17 06:20 Red Blood Count 3.27 L, Mean Corpuscular Volume 91.8, Mean Corpuscular Hemoglobin 32.7, Mean Corpuscular Hemoglobin Concent 35.6, Red Cell Distribution Width 14.1, Calcium Level 8.1 L, Aspartate Amino Transf (AST/SGOT) 7 L, Alanine Aminotransferase (ALT/SGPT) 17, Alkaline Phosphatase 80, Total Bilirubin 0.3, Total Protein 6.0 L, Albumin 2.2 L Microbiology Microbiology 02/27/17 Blood Culture - Preliminary, Resulted No Growth after 48 hours. All Specime... 02/28/17 Urine Culture - Final, Complete MICHELLE MARMOLEJO MD Mar 02, 2017 14:28
[2017-03-02] MEDS: amLODIPine 5 MG TAB PO SCH (20:36)
[2017-03-02 22:00] VITALS: BP 150/73
[2017-03-03 06:00] VITALS: BP 155/70
[2017-03-03] MEDS: HEPARIN SOD (PORCINE) 5000 UNITS/ML VIAL SC SCH ×3 (06:18→21:16)
[2017-03-03] MEDS: SLF 3 ML SYR IV SCH ×3 (06:19→21:16)
[2017-03-03 07:00] LABS: MEAN CORPUSCULAR HEMOGLOBIN 31.4 pg (27.0-33.0); MEAN CORPUSCULAR HGB CONC 33.8 g/dl (32.0-36.5); MEAN CORPUSCULAR VOLUME 92.9 fl (80.0-96.0); RED CELL DISTRIBUTION WIDTH 14.3 % (11.5-14.5); WHITE BLOOD COUNT 8.7 K/mm3 (4.0-10.0)
[2017-03-03 07:32] LABS: ALBUMIN 2.6 GM/DL (3.2-5.2); ALBUMIN/GLOBULIN RATIO 0.62 (1.00-1.93); BILIRUBIN,TOTAL 0.3 MG/DL (0.2-1.0); CALCIUM LEVEL 8.7 MG/DL (8.8-10.2); CREATININE FOR GFR 1.79 MG/DL (0.70-1.30); GLOMERULAR FILTRATION RATE 38.8 (>35); MAGNESIUM LEVEL 2.1 MG/DL (1.8-2.4); POTASSIUM SERUM 3.9 MEQ/L (3.5-5.1); TOTAL PROTEIN 6.8 GM/DL (6.4-8.2)
[2017-03-03] MEDS: HumaLOG INSULIN (NovoLOG) PER UNIT SC SCH ×4 (07:57→22:10)
[2017-03-03] MEDS ORDERED: INSUH10VL SC (07:57)
[2017-03-03] MEDS: ASPIRIN ENTERIC 325 MG TAB PO SCH (07:58)
[2017-03-03] MEDS: FUROSEMIDE 80 MG TAB PO SCH (07:58)
[2017-03-03] MEDS: LOSARTAN 50 MG TAB PO SCH (07:58)
[2017-03-03] MEDS: ROSUVASTATIN 10 MG TAB (CRESTOR) PO SCH (07:59)
[2017-03-03] MEDS: CARVedilol 12.5 MG TAB PO SCH ×2 (07:59→21:14)
[2017-03-03] MEDS: LACTULOSE 20 GM/30 ML SYRUP UD PO SCH ×2 (07:59→21:15)
[2017-03-03] MEDS: SENOKOT S TAB PO SCH ×2 (07:59→21:15)
[2017-03-03] MEDS: GABAPENTIN 100 MG CAP PO SCH ×2 (07:59→21:15)
[2017-03-03] MEDS: LEVEMIR (INSULIN DETEMIR) 1 UNITS/0.01ML SC SCH ×2 (08:38→21:16)
--- NOTE | 2017-03-03 12:22 | IPNPDOC ---
Date Seen The patient was seen on 03/03/17. Progress Note Patient is an 81 year old male with a PMHx of DM2, HTN, DLP, CAD, CKD4 , Obesity, Venous stasis and Diastolic CHF who presented to the ER after he was found to be hypoglycemic and hypotensive by EMS. Patient was at home an noted that his sugars were elevated yesterday at 540, he received 10 units of Novolog and had taken some medications inappropriately at home. After this point he began to have symptoms and EMS was notified. Patient was seen and examined at the bedside currently. He complains of blisters on both his legs and increased leg swelling. Objective: Vitals (See below) General: Lying in bed, no acute distress, comfortable, AAOx3 HEENT: NC, AT CVS: +S1S2 Lungs: Fair air entry b/l, -w/r/r Abdomen: Soft, ND, NT, +BSx4 Extremities: LE venous stasis ulcers with blisters bilaterally, - Calf tenderness Assessment and plan: 1. s/p Pre-syncope - likely 2/2 hypotension and hypoglycemia - likely 2/2 medication misuse - Presented with hypoglycemia and hypotension - Currently his blood glucose is elevated and blood pressure is elevated - Physical unrevealing - Orthostatic vital signs still positive - possibly age related and due to autonomic neuropathy. 2. DM2 - s/p Hypoglycemia - A1c of 8.4% - c/w Levemir at 50 QD; and Levemir 20 QHS - c/w ISS 3. Hypertension - s/p Hypotension - c/w Losartan 100, Carvedilol 25 BID, Amlodipine 10 4. Elevated troponin - likely 2/2 hypotension and CK4 - Troponin have remained around similar range 5. s/p Lactic acidosis 6. Acute kidney injury on CKD4 - Cr baseline of 1.5-1.7 - Cr currently at 2.1 - Avoid nephrotoxic medications 7. DLP - c/w rosuvastatin 8. Bilateral LE swelling with chronic venous stasis changes - Physical notes that there is mild pitting edema, blisters are noted - Duplex US negative for DVT - continue with lasix 9. Diastolic CHF - appears compensated - mild edema of b/l lower extremities - BNP of 690 - ECHO 02/28: EF of 55%, Grade 1 Diastolic dysfunction, mild-moderate TR, mild pulmonary HTN, trace pericardial effusion - c/w Lasix (home dose of 80 daily) 10. Morbid obesity 11. RIKKI - no CPAP machine - c/w RIKKI protocol 12. CAD - c/w ASA, Rosuvastatin and Carvedilol 13. Chronic pain / Diabetic neuropathy - c/w Gabapentin and Oxycodone 14. DVT prophylaxis - c/w Heparin SQ Disposition: - Discussed with son; has arranged for caregiver at home for 7 days a week - Will wait for sugars to be well controlled - Will await PT clearance VS, I&O, 24H, Fishbone Vital Signs/I&O Vital Signs Date Time Temp Pulse Resp B/P (MAP) Pulse Ox O2 Delivery O2 Flow Rate FiO2 03/03/17 07:58 155/70 03/03/17 06:00 96.9 81 20 98 Room Air 03/01/17 07:43 1.0 I&O- Last 24 Hours up to 6 AM 03/03/17 06:00 Intake Total 2040 ml Balance 2040 ml Laboratory Data 24H LABS Laboratory Tests 2 03/03/17 06:52: Anion Gap 8, Glomerular Filtration Rate 38.8, Blood Urea Nitrogen 43H, Creatinine 1.79H, Sodium Level 138, Potassium Level 3.9, Chloride Level 103, Carbon Dioxide Level 27, Calcium Level 8.7L, Aspartate Amino Transf (AST/SGOT) 11L, Alanine Aminotransferase (ALT/SGPT) 16, Alkaline Phosphatase 87, Total Bilirubin 0.3, Total Protein 6.8, Albumin 2.6L, Magnesium Level 2.1, C-Reactive Protein, Quantitative 1.05H, Albumin/Globulin Ratio 0.62L 03/03/17 11:53: Bedside Glucose (Misc Panel) 303H CBC/BMP Laboratory Tests 03/03/17 06:51 Red Blood Count 3.71 L, Mean Corpuscular Volume 92.9, Mean Corpuscular Hemoglobin 31.4, Mean Corpuscular Hemoglobin Concent 33.8, Red Cell Distribution Width 14.3 03/03/17 06:52 Calcium Level 8.7 L, Aspartate Amino Transf (AST/SGOT) 11 L, Alanine Aminotransferase (ALT/SGPT) 16, Alkaline Phosphatase 87, Total Bilirubin 0.3, Total Protein 6.8, Albumin 2.6 L Microbiology Microbiology 02/27/17 Blood Culture - Preliminary, Resulted No Growth after 72 hours. All specime... 7/22/17 Urine Culture - Final, Complete MICHELLE MARMOLEJO MD Mar 03, 2017 12:22
[2017-03-03 14:00] VITALS: BP 137/68
[2017-03-03] MEDS ORDERED: FUROSEMIDE 100 MG/10 ML VIAL (J1940) IV ONE (15:00)
[2017-03-03] MEDS ORDERED: HumaLOG INSULIN (NovoLOG) PER UNIT SC ONE (18:15)
[2017-03-03] MEDS: amLODIPine 5 MG TAB PO SCH (21:15)
[2017-03-03 22:00] VITALS: BP 155/70
[2017-03-04] MEDS: HEPARIN SOD (PORCINE) 5000 UNITS/ML VIAL SC SCH (05:32)
[2017-03-04] MEDS: SLF 3 ML SYR IV SCH (05:32)
[2017-03-04 06:00] VITALS: BP 119/60
[2017-03-04] MEDS: HumaLOG INSULIN (NovoLOG) PER UNIT SC SCH ×2 (08:23→12:35)
[2017-03-04] MEDS: ASPIRIN ENTERIC 325 MG TAB PO SCH (08:28)
[2017-03-04] MEDS: ROSUVASTATIN 10 MG TAB (CRESTOR) PO SCH (08:28)
[2017-03-04] MEDS: SENOKOT S TAB PO SCH (08:28)
[2017-03-04] MEDS: GABAPENTIN 100 MG CAP PO SCH (08:28)
[2017-03-04 08:29] VITALS: BP 147/66
[2017-03-04] MEDS: LOSARTAN 50 MG TAB PO SCH (08:29)
[2017-03-04] MEDS: CARVedilol 12.5 MG TAB PO SCH (08:29)
[2017-03-04] MEDS ORDERED: FUROSEMIDE 100 MG/10 ML VIAL (J1940) IV ONE (08:30)
[2017-03-04] MEDS: LACTULOSE 20 GM/30 ML SYRUP UD PO SCH (08:30)
[2017-03-04] MEDS: FUROSEMIDE 80 MG TAB PO SCH (08:33)
[2017-03-04] MEDS ORDERED: LEVEMIR (INSULIN DETEMIR) 1 UNITS/0.01ML SC SCH (09:00)
--- NOTE | 2017-03-06 13:45 | DSES ---
DATE OF ADMISSION: 02/28/2017 DATE OF DISCHARGE: 03/04/2017 PRIMARY CARE PROVIDER: Dr. Cifuentes. DISCHARGE DIAGNOSES: Presyncope due to hypoglycemia and hypotension. Orthostatic hypotension. Diabetes. Hypertension. Acute kidney injury on chronic kidney disease. Hyperlipidemia. Chronic venous stasis with bilateral edema. Diastolic congestive heart failure. Morbid obesity. Obstructive sleep apnea (RIKKI). Coronary artery disease. Diabetic neuropathy. Persistent elevation of troponins felt to be due to chronic kidney disease. DISCHARGE MEDICATIONS: - amlodipine 5 mg daily - aspirin 325 mg by mouth daily - carvedilol 25 mg twice daily - Lasix 80 mg by mouth daily - gabapentin 100 mg by mouth daily in the morning and 200 mg at bedtime - Levemir insulin 70 units in the morning daily - lactulose 60 mL by mouth twice daily - Losartan 100 mg by mouth daily - nitroglycerine 0.4 mg as needed angina - Crestor 10 mg by mouth daily - Trulicity 1.5 mg subcutaneously as directed - NovoLog insulin 12 units before meals HOSPITAL COURSE: This is an 81-year-old male lives alone with poor compliance and not proper medical followups presented to the hospital for lightheadedness and presyncope. EMS was called at home and patient was found to have blood glucose in 70s and blood pressure in 80s which responded to IV fluids. Patient does have pretty much variable glucose level, and as per family, not really compliant with his medications. The patient was admitted to the hospital for hypotension and hypoglycemia. Patient was also noted to have chronic bilateral venous stasis with blisters. In the hospital, patient responded well to treatment. Patient's hypoglycemia was corrected and hypotension responded to fluids. He was noted to be orthostatic positive. It was felt to be age related and may be autonomic neuropathy related. His insulin dosage was adjusted, however it was noted that he tends to have very high insulins during the afternoon and evening with much lower levels during the mornings. Patient was put on fluid restrictions and also given a few doses of IV Lasix to mobilize his fluids from the legs. He was seen by physical therapy and felt functionally he was at baseline to be discharged home, however, there were concerns regarding his ability to take his medications properly at the proper time and proper dosage so was advised to be discharged with 24 hour caregiver. Family arranged for 02/03 caregiver at home. On the day of discharge, patient did not have any complaints. His vitals were stable and functionally he was close to his baseline. PHYSICAL EXAMINATION: Vital signs: Temperature 97.5, pulse 62, respiratory rate 18, blood pressure 147/66, pulse oximetry 96% on room air. General: Patient awake, alert, oriented times three sitting up in chair in no acute distress. HEENT: Normocephalic, atraumatic. Moist mucous membranes. Anicteric eyes. Chest: Clear to auscultation. Cardiovascular: S1, S2, regular. Abdomen: Obese, soft, nontender, bowel sounds present. Extremities: Bipedal edema with chronic venous stasis changes and blisters. LABORATORY DATA: WBC 8.7, hemoglobin 11.6, platelet 169. Sodium 138, potassium 3.9, chloride 103, bicarbonate 27, BUN 43, creatinine 1.79. Glucose 147, calcium 8.7, CRP 1.05. Albumin 2.6. Vascular ultrasound negative for deep venous thrombosis (DVT) in both lower extremities. DISPOSITION: Patient is discharged home with 24/ care. DISCHARGE INSTRUCTIONS: Patient to followup with primary care provider in 1 week. Carbohydrate consistent diet and with fluid restriction of 1800 mL per day. Activity as tolerated.
== END 2017-03-04 13:50 | disposition home health service (06) | DRG 638 ==
LOC: M ED 21:03 → EDBD 21:03 → M ED INP 02-28 01:10 → M PCU 02-28 16:20 → M MS5PR 03-01 20:30
PROVIDERS: ADMIT Hospitalist; ATTEND Internal Medicine Nephrology
DX: E11.649 Type 2 diabetes mellitus with hypoglycemia without coma (principal); I13.0 Hypertensive heart and chronic kidney disease with heart failure and stage 1 through stage 4 chronic kidney disease, or unspecified chronic kidney disease; E87.2 Acidosis; I50.32 Chronic diastolic (congestive) heart failure; I95.1 Orthostatic hypotension; E78.5 Hyperlipidemia, unspecified; I25.10 Atherosclerotic heart disease of native coronary artery without angina pectoris; N18.4 Chronic kidney disease, stage 4 (severe); E66.01 Morbid (severe) obesity due to excess calories; G47.33 Obstructive sleep apnea (adult) (pediatric); N17.9 Acute kidney failure, unspecified; I87.2 Venous insufficiency (chronic) (peripheral); E11.43 Type 2 diabetes mellitus with diabetic autonomic (poly)neuropathy; Z95.1 Presence of aortocoronary bypass graft; Z87.891 Personal history of nicotine dependence; Z79.82 Long term (current) use of aspirin; Z79.4 Long term (current) use of insulin; Z79.899 Other long term (current) drug therapy; Z91.14 Patient's other noncompliance with medication regimen